=== PATIENT | male | born 1960 | race Caucasian/White ===

== ENCOUNTER 2019-12-23 15:28 | Inpatient (IN) | payer OTHER ==
[2019-12-23 17:28] VITALS: BMI 29.0
[2019-12-23] MEDS ORDERED: MAGNESIUM HYDROX 2400MG/30ML ORAL SUSPENSION 30 ML CUP PO PRN (23:33)
[2019-12-23] MEDS ORDERED: guaiFENesin 200 MG/10 ML 10 ML UNIT-DOSE CUPS PO PRN (23:33)
[2019-12-23] MEDS ORDERED: MAG HYDROX/AL HYDROX/SIMETH 30 ML UNIT-DOSE CUP PO PRN (23:33)
[2019-12-23] MEDS ORDERED: MAGNESIUM CITRATE 300 ML BOTTLE PO PRN (23:33)
[2019-12-23] MEDS ORDERED: LOPERAMIDE HCL 2 MG CAPSULE PO PRN (23:33)
[2019-12-23] MEDS ORDERED: P-EPHED 60MG/TRIPROLIDI 2.5MG TABLET PO PRN (23:33)
[2019-12-24] MEDS: MELATONIN 5 MG TABLETS PO SCH ×2 (01:24→21:02)
[2019-12-24] MEDS: BUPRENORPHINE/NALOXONE 2 MG/0.5 MG FILM PACKET SL SCH (09:50)
[2019-12-24] MEDS: ASPIRIN COATED 81 MG TABLET.EC PO SCH (09:50)
[2019-12-24] MEDS: PRENATAL VITAMINS W/ FOLIC ACID TABLET (FP) PO SCH (09:50)
[2019-12-24] MEDS: ATORVASTATIN CA 40 MG TABLET (FP) PO SCH (09:51)
[2019-12-24] MEDS: FERROUS SO4 325 MG TABLET (FP) PO SCH ×2 (09:51→21:02)
[2019-12-24] MEDS: NIFEdipine E.R 60 MG TABLET PO SCH (09:51)
[2019-12-24] MEDS ORDERED: RIVAROXABAN 2.5 MG TABLET PO SCH (10:00)
[2019-12-24] MEDS: LOSARTAN POTASSIUM 25 MG TABLET PO SCH (10:29)
[2019-12-24] MEDS: metoPROLOL SUCCINATE 25 MG TAB.SR.24H (FP) PO SCH (10:30)
[2019-12-24 11:54] LABS: HEMATOCRIT 38.3 % (35.4-49); HEMOGLOBIN 12.9 GM/dL (11.7-16.9); MCH 30.6 pg (25.7-33.7); MCHC 33.7 g/dl (32.0-35.9); MEAN PLT VOLUME 7.8 fl (7.5-11.1); PLATELET COUNT 233 K/MM3 (134-434); RBC 4.22 M/mm3 (4.00-5.60); RDW 13.5 % (11.9-15.9); WHITE BLOOD COUNT 7.2 K/mm3 (4.0-10.0)
[2019-12-24 12:03] LABS: URINE APPEARANCE CLEAR; URINE BILIRUBIN NEGATIVE (NEGATIVE); URINE COLOR YELLOW; URINE GLUCOSE (UA) NEGATIVE (NEGATIVE); URINE KETONE NEGATIVE (NEGATIVE); URINE LEUK ESTERASE NEGATIVE (NEGATIVE); URINE NITRITE NEGATIVE (NEGATIVE); URINE PROTEIN NEGATIVE (NEGATIVE); URINE UROBILINOGEN 0.2 mg/dL (0.2-1.0)
[2019-12-24 12:09] LABS: BILIRUBIN,TOTAL 0.6 mg/dL (0.2-1); BLOOD UREA NITROGEN 21.2 mg/dL (7-18); CALCIUM 8.5 mg/dL (8.5-10.1); POTASSIUM 4.2 mmol/L (3.5-5.1)
[2019-12-24 12:12] LABS: ALBUMIN 3.9 g/dl (3.4-5.0); CREATININE 1.4 mg/dL (0.55-1.3); TOT PROT 8.2 g/dl (6.4-8.2)
[2019-12-24 12:25] LABS: SICKLE CELL SCREEN NEGATIVE (NEGATIVE)
[2019-12-24] MEDS: RIVAROXABAN 2.5 MG PO SCH ×2 (14:38→21:02)
[2019-12-24] MEDS ORDERED: PT OWN MED DRAWER 7, Y5N ONE ×3 (16:05→21:03)
[2019-12-24] MEDS: THIAMINE HCL 100 MG TABLET (FP) PO SCH (21:02)
[2019-12-25] MEDS: metoPROLOL SUCCINATE 25 MG TAB.SR.24H (FP) PO SCH (10:10)
[2019-12-25] MEDS: ASPIRIN COATED 81 MG TABLET.EC PO SCH (10:10)
[2019-12-25] MEDS: LOSARTAN POTASSIUM 25 MG TABLET PO SCH (10:10)
[2019-12-25] MEDS: FERROUS SO4 325 MG TABLET (FP) PO SCH ×2 (10:10→21:45)
[2019-12-25] MEDS: NIFEdipine E.R 60 MG TABLET PO SCH (10:10)
[2019-12-25] MEDS: ATORVASTATIN CA 40 MG TABLET (FP) PO SCH (10:10)
[2019-12-25] MEDS: PRENATAL VITAMINS W/ FOLIC ACID TABLET (FP) PO SCH (10:10)
[2019-12-25] MEDS: BUPRENORPHINE/NALOXONE 2 MG/0.5 MG FILM PACKET SL SCH (10:10)
[2019-12-25] MEDS ORDERED: PT OWN MED DRAWER 7, Y5N ONE ×2 (10:12→19:02)
[2019-12-25] MEDS: RIVAROXABAN 2.5 MG PO SCH ×2 (10:12→21:45)
[2019-12-25] MEDS: THIAMINE HCL 100 MG TABLET (FP) PO SCH (21:45)
[2019-12-25] MEDS: MELATONIN 5 MG TABLETS PO SCH (21:45)
[2019-12-26] MEDS: ACETAMINOPHEN 325 MG TABLET (FP) PO PRN ×2 (10:08→21:03)
[2019-12-26] MEDS: ASPIRIN COATED 81 MG TABLET.EC PO SCH (10:08)
[2019-12-26] MEDS: NIFEdipine E.R 60 MG TABLET PO SCH (10:08)
[2019-12-26] MEDS: FERROUS SO4 325 MG TABLET (FP) PO SCH ×2 (10:08→21:02)
[2019-12-26] MEDS: BUPRENORPHINE/NALOXONE 2 MG/0.5 MG FILM PACKET SL SCH (10:08)
[2019-12-26] MEDS: LOSARTAN POTASSIUM 25 MG TABLET PO SCH (10:08)
[2019-12-26] MEDS: ATORVASTATIN CA 40 MG TABLET (FP) PO SCH (10:08)
[2019-12-26] MEDS: RIVAROXABAN 2.5 MG PO SCH ×2 (10:09→21:02)
[2019-12-26] MEDS ORDERED: PT OWN MED DRAWER 7, Y5N ONE ×2 (10:09→20:47)
[2019-12-26] MEDS: PRENATAL VITAMINS W/ FOLIC ACID TABLET (FP) PO SCH (10:10)
[2019-12-26] MEDS: metoPROLOL SUCCINATE 25 MG TAB.SR.24H (FP) PO SCH (10:12)
[2019-12-26] MEDS: THIAMINE HCL 100 MG TABLET (FP) PO SCH (21:02)
[2019-12-26] MEDS: MELATONIN 5 MG TABLETS PO SCH (21:02)
[2019-12-27] MEDS: ACETAMINOPHEN 325 MG TABLET (FP) PO PRN (06:40)
[2019-12-27] MEDS ORDERED: cloNIDine HCL 0.1 MG TABLET PO ONE (07:29)
[2019-12-27] MEDS ORDERED: PT OWN MED DRAWER 7, Y5N ONE ×2 (08:33→21:27)
[2019-12-27] MEDS: BUPRENORPHINE/NALOXONE 2 MG/0.5 MG FILM PACKET SL SCH (10:39)
[2019-12-27] MEDS: ATORVASTATIN CA 40 MG TABLET (FP) PO SCH (10:39)
[2019-12-27] MEDS: LOSARTAN POTASSIUM 25 MG TABLET PO SCH (10:39)
[2019-12-27] MEDS: metoPROLOL SUCCINATE 25 MG TAB.SR.24H (FP) PO SCH (10:39)
[2019-12-27] MEDS: PRENATAL VITAMINS W/ FOLIC ACID TABLET (FP) PO SCH (10:39)
[2019-12-27] MEDS: NIFEdipine E.R 60 MG TABLET PO SCH (10:39)
[2019-12-27] MEDS: ASPIRIN COATED 81 MG TABLET.EC PO SCH (10:39)
[2019-12-27] MEDS: FERROUS SO4 325 MG TABLET (FP) PO SCH ×2 (10:39→21:26)
[2019-12-27] MEDS: RIVAROXABAN 2.5 MG PO SCH ×2 (10:39→21:26)
[2019-12-27] MEDS: MELATONIN 5 MG TABLETS PO SCH (21:26)
[2019-12-27] MEDS: THIAMINE HCL 100 MG TABLET (FP) PO SCH (21:26)
[2019-12-28] MEDS ORDERED: PT OWN MED DRAWER 7, Y5N ONE ×3 (08:29→18:23)
[2019-12-28] MEDS: metoPROLOL SUCCINATE 25 MG TAB.SR.24H (FP) PO SCH (09:22)
[2019-12-28] MEDS: LOSARTAN POTASSIUM 25 MG TABLET PO SCH (09:22)
[2019-12-28] MEDS: FERROUS SO4 325 MG TABLET (FP) PO SCH ×2 (09:22→21:02)
[2019-12-28] MEDS: PRENATAL VITAMINS W/ FOLIC ACID TABLET (FP) PO SCH (09:22)
[2019-12-28] MEDS: NIFEdipine E.R 60 MG TABLET PO SCH (09:22)
[2019-12-28] MEDS: ATORVASTATIN CA 40 MG TABLET (FP) PO SCH (09:22)
[2019-12-28] MEDS: ASPIRIN COATED 81 MG TABLET.EC PO SCH (09:22)
[2019-12-28] MEDS: BUPRENORPHINE/NALOXONE 2 MG/0.5 MG FILM PACKET SL SCH (09:22)
[2019-12-28] MEDS: RIVAROXABAN 2.5 MG PO SCH ×2 (09:22→21:03)
[2019-12-28] MEDS: MELATONIN 5 MG TABLETS PO SCH (21:02)
[2019-12-28] MEDS: THIAMINE HCL 100 MG TABLET (FP) PO SCH (21:02)
[2019-12-29] MEDS: metoPROLOL SUCCINATE 25 MG TAB.SR.24H (FP) PO SCH (10:01)
[2019-12-29] MEDS: FERROUS SO4 325 MG TABLET (FP) PO SCH ×2 (10:01→21:33)
[2019-12-29] MEDS: NIFEdipine E.R 60 MG TABLET PO SCH (10:01)
[2019-12-29] MEDS: PRENATAL VITAMINS W/ FOLIC ACID TABLET (FP) PO SCH (10:01)
[2019-12-29] MEDS: ASPIRIN COATED 81 MG TABLET.EC PO SCH (10:01)
[2019-12-29] MEDS: LOSARTAN POTASSIUM 25 MG TABLET PO SCH (10:01)
[2019-12-29] MEDS: ATORVASTATIN CA 40 MG TABLET (FP) PO SCH (10:01)
[2019-12-29] MEDS: RIVAROXABAN 2.5 MG PO SCH ×2 (10:03→21:33)
[2019-12-29] MEDS: ACETAMINOPHEN 325 MG TABLET (FP) PO PRN ×2 (10:05→21:34)
[2019-12-29] MEDS: BUPRENORPHINE/NALOXONE 2 MG/0.5 MG FILM PACKET SL SCH (10:15)
[2019-12-29] MEDS: CYCLOBENZAPRINE HCL 10 MG TABLET (FP) PO PRN (12:12)
[2019-12-29] MEDS ORDERED: PT OWN MED DRAWER 7, Y5N ONE (18:16)
[2019-12-29] MEDS: MELATONIN 5 MG TABLETS PO SCH (21:33)
[2019-12-29] MEDS: THIAMINE HCL 100 MG TABLET (FP) PO SCH (21:33)
[2019-12-30] MEDS ORDERED: PT OWN MED DRAWER 7, Y5N ONE ×3 (08:21→20:13)
[2019-12-30] MEDS: LOSARTAN POTASSIUM 25 MG TABLET PO SCH (10:08)
[2019-12-30] MEDS: PRENATAL VITAMINS W/ FOLIC ACID TABLET (FP) PO SCH (10:09)
[2019-12-30] MEDS: ATORVASTATIN CA 40 MG TABLET (FP) PO SCH (10:09)
[2019-12-30] MEDS: ASPIRIN COATED 81 MG TABLET.EC PO SCH (10:09)
[2019-12-30] MEDS: NIFEdipine E.R 60 MG TABLET PO SCH (10:09)
[2019-12-30] MEDS: FERROUS SO4 325 MG TABLET (FP) PO SCH ×2 (10:10→21:04)
[2019-12-30] MEDS: metoPROLOL SUCCINATE 25 MG TAB.SR.24H (FP) PO SCH (10:10)
[2019-12-30] MEDS: BUPRENORPHINE/NALOXONE 2 MG/0.5 MG FILM PACKET SL SCH (10:11)
[2019-12-30] MEDS: RIVAROXABAN 2.5 MG PO SCH ×2 (10:11→21:06)
[2019-12-30] MEDS: CYCLOBENZAPRINE HCL 10 MG TABLET (FP) PO PRN ×2 (10:12→21:05)
[2019-12-30] MEDS: MELATONIN 5 MG TABLETS PO SCH (21:04)
[2019-12-30] MEDS: THIAMINE HCL 100 MG TABLET (FP) PO SCH (21:06)
[2019-12-31] MEDS: ACETAMINOPHEN 325 MG TABLET (FP) PO PRN ×2 (05:57→21:53)
[2019-12-31] MEDS: CYCLOBENZAPRINE HCL 10 MG TABLET (FP) PO PRN ×2 (05:57→21:52)
[2019-12-31] MEDS ORDERED: PT OWN MED DRAWER 7, Y5N ONE ×3 (08:28→20:09)
[2019-12-31] MEDS: PRENATAL VITAMINS W/ FOLIC ACID TABLET (FP) PO SCH (10:19)
[2019-12-31] MEDS: NIFEdipine E.R 60 MG TABLET PO SCH (10:20)
[2019-12-31] MEDS: FERROUS SO4 325 MG TABLET (FP) PO SCH ×2 (10:20→21:51)
[2019-12-31] MEDS: LOSARTAN POTASSIUM 25 MG TABLET PO SCH (10:20)
[2019-12-31] MEDS: BUPRENORPHINE/NALOXONE 2 MG/0.5 MG FILM PACKET SL SCH (10:20)
[2019-12-31] MEDS: ASPIRIN COATED 81 MG TABLET.EC PO SCH (10:21)
[2019-12-31] MEDS: metoPROLOL SUCCINATE 25 MG TAB.SR.24H (FP) PO SCH (10:21)
[2019-12-31] MEDS: RIVAROXABAN 2.5 MG PO SCH ×2 (10:21→21:54)
[2019-12-31] MEDS: ATORVASTATIN CA 40 MG TABLET (FP) PO SCH (10:21)
[2019-12-31] MEDS ORDERED: FLU VACCINE (FLULAVAL) PF 60 MCG/0.5 ML SYRINGE 2020-2021 IM ONE (12:00)
[2019-12-31] MEDS: THIAMINE HCL 100 MG TABLET (FP) PO SCH (21:51)
[2019-12-31] MEDS: MELATONIN 5 MG TABLETS PO SCH (21:51)
[2020-01-01] MEDS ORDERED: ASPIRIN 81 MG CHEWABLE TABLETS PO ONE (09:00)
[2020-01-01] MEDS: ASPIRIN COATED 81 MG TABLET.EC PO SCH (10:30)
[2020-01-01] MEDS ORDERED: PNEUMOCOCCAL 23 VACCINE 0.5 ML VIAL IM ONE (12:00)
[2020-01-01] MEDS: LOSARTAN POTASSIUM 25 MG TABLET PO SCH (12:39)
[2020-01-01] MEDS: NIFEdipine E.R 60 MG TABLET PO SCH (12:40)
[2020-01-01] MEDS: RIVAROXABAN 2.5 MG PO SCH ×2 (13:23→22:11)
[2020-01-01] MEDS ORDERED: PT OWN MED DRAWER 7, Y5N ONE ×2 (13:23→15:08)
[2020-01-01] MEDS: metoPROLOL SUCCINATE 25 MG TAB.SR.24H (FP) PO SCH (13:24)
[2020-01-01] MEDS: FERROUS SO4 325 MG TABLET (FP) PO SCH ×2 (13:24→22:07)
[2020-01-01] MEDS: BUPRENORPHINE/NALOXONE 2 MG/0.5 MG FILM PACKET SL SCH (13:24)
[2020-01-01] MEDS: ATORVASTATIN CA 40 MG TABLET (FP) PO SCH (13:25)
[2020-01-01] MEDS: PRENATAL VITAMINS W/ FOLIC ACID TABLET (FP) PO SCH (13:25)
[2020-01-01] MEDS: ACETAMINOPHEN 325 MG TABLET (FP) PO PRN (13:27)
[2020-01-01] MEDS: valACYclovir HCL 500 MG TABLET (FP) PO SCH ×2 (15:21→22:06)
[2020-01-01] MEDS: PREGABALIN 100 MG CAPSULE PO SCH ×2 (15:22→22:06)
[2020-01-01] MEDS: MELATONIN 5 MG TABLETS PO SCH (22:06)
[2020-01-01] MEDS: THIAMINE HCL 100 MG TABLET (FP) PO SCH (22:08)
[2020-01-02] MEDS: ACETAMINOPHEN 325 MG TABLET (FP) PO PRN ×2 (02:49→11:04)
[2020-01-02] MEDS: valACYclovir HCL 500 MG TABLET (FP) PO SCH ×3 (06:40→21:57)
[2020-01-02] MEDS: PREGABALIN 100 MG CAPSULE PO SCH ×3 (06:40→21:57)
[2020-01-02] MEDS ORDERED: PT OWN MED DRAWER 7, Y5N ONE ×2 (08:51→08:52)
[2020-01-02] MEDS: RIVAROXABAN 2.5 MG PO SCH ×2 (10:58→21:58)
[2020-01-02] MEDS: ATORVASTATIN CA 40 MG TABLET (FP) PO SCH (10:58)
[2020-01-02] MEDS: PRENATAL VITAMINS W/ FOLIC ACID TABLET (FP) PO SCH (10:58)
[2020-01-02] MEDS: FERROUS SO4 325 MG TABLET (FP) PO SCH ×2 (10:58→21:57)
[2020-01-02] MEDS: LOSARTAN POTASSIUM 25 MG TABLET PO SCH (10:59)
[2020-01-02] MEDS: ASPIRIN COATED 81 MG TABLET.EC PO SCH (10:59)
[2020-01-02] MEDS: NIFEdipine E.R 60 MG TABLET PO SCH (10:59)
[2020-01-02] MEDS: metoPROLOL SUCCINATE 25 MG TAB.SR.24H (FP) PO SCH (11:00)
[2020-01-02] MEDS: BUPRENORPHINE/NALOXONE 2 MG/0.5 MG FILM PACKET SL SCH (11:00)
[2020-01-02] MEDS: MELATONIN 5 MG TABLETS PO SCH (21:58)
[2020-01-02] MEDS: THIAMINE HCL 100 MG TABLET (FP) PO SCH (21:58)
[2020-01-03] MEDS: PREGABALIN 100 MG CAPSULE PO SCH ×3 (07:20→21:47)
[2020-01-03] MEDS: valACYclovir HCL 500 MG TABLET (FP) PO SCH ×3 (07:20→21:48)
[2020-01-03] MEDS: ACETAMINOPHEN 325 MG TABLET (FP) PO PRN ×2 (07:23→14:36)
[2020-01-03] MEDS: hydrOXYzine PAMOATE 25 MG CAPSULE (FP) PO PRN (07:23)
[2020-01-03] MEDS: PRENATAL VITAMINS W/ FOLIC ACID TABLET (FP) PO SCH (10:49)
[2020-01-03] MEDS: ASPIRIN COATED 81 MG TABLET.EC PO SCH (10:49)
[2020-01-03] MEDS: metoPROLOL SUCCINATE 25 MG TAB.SR.24H (FP) PO SCH (10:49)
[2020-01-03] MEDS: NIFEdipine E.R 60 MG TABLET PO SCH (10:49)
[2020-01-03] MEDS: FERROUS SO4 325 MG TABLET (FP) PO SCH ×2 (10:49→21:47)
[2020-01-03] MEDS: ATORVASTATIN CA 40 MG TABLET (FP) PO SCH (10:49)
[2020-01-03] MEDS: LOSARTAN POTASSIUM 25 MG TABLET PO SCH (10:49)
[2020-01-03] MEDS: BUPRENORPHINE/NALOXONE 2 MG/0.5 MG FILM PACKET SL SCH (10:49)
[2020-01-03] MEDS: RIVAROXABAN 2.5 MG PO SCH ×2 (10:52→21:47)
[2020-01-03] MEDS ORDERED: PT OWN MED DRAWER 7, Y5N ONE ×3 (10:53→18:34)
[2020-01-03] MEDS: THIAMINE HCL 100 MG TABLET (FP) PO SCH (21:47)
[2020-01-03] MEDS: MELATONIN 5 MG TABLETS PO SCH (21:47)
[2020-01-04] MEDS: ACETAMINOPHEN 325 MG TABLET (FP) PO PRN (02:17)
[2020-01-04] MEDS: hydrOXYzine PAMOATE 25 MG CAPSULE (FP) PO PRN ×2 (02:17→10:19)
[2020-01-04] MEDS: valACYclovir HCL 500 MG TABLET (FP) PO SCH ×3 (06:45→21:56)
[2020-01-04] MEDS: PREGABALIN 100 MG CAPSULE PO SCH ×3 (06:45→21:56)
[2020-01-04] MEDS: FERROUS SO4 325 MG TABLET (FP) PO SCH ×2 (10:19→21:55)
[2020-01-04] MEDS: NIFEdipine E.R 60 MG TABLET PO SCH (10:19)
[2020-01-04] MEDS: BUPRENORPHINE/NALOXONE 2 MG/0.5 MG FILM PACKET SL SCH (10:19)
[2020-01-04] MEDS: ATORVASTATIN CA 40 MG TABLET (FP) PO SCH (10:19)
[2020-01-04] MEDS: ASPIRIN COATED 81 MG TABLET.EC PO SCH (10:19)
[2020-01-04] MEDS: PRENATAL VITAMINS W/ FOLIC ACID TABLET (FP) PO SCH (10:19)
[2020-01-04] MEDS: metoPROLOL SUCCINATE 25 MG TAB.SR.24H (FP) PO SCH (10:20)
[2020-01-04] MEDS: RIVAROXABAN 2.5 MG PO SCH ×2 (10:20→21:57)
[2020-01-04] MEDS: LOSARTAN POTASSIUM 25 MG TABLET PO SCH (10:20)
[2020-01-04] MEDS ORDERED: PT OWN MED DRAWER 7, Y5N ONE (20:19)
[2020-01-04] MEDS: THIAMINE HCL 100 MG TABLET (FP) PO SCH (21:57)
[2020-01-04] MEDS: MELATONIN 5 MG TABLETS PO SCH (21:57)
[2020-01-05] MEDS: valACYclovir HCL 500 MG TABLET (FP) PO SCH ×3 (06:16→21:56)
[2020-01-05] MEDS: PREGABALIN 100 MG CAPSULE PO SCH ×3 (06:16→21:56)
[2020-01-05] MEDS: FERROUS SO4 325 MG TABLET (FP) PO SCH ×2 (10:30→21:55)
[2020-01-05] MEDS: hydrOXYzine PAMOATE 25 MG CAPSULE (FP) PO PRN ×2 (10:30→15:03)
[2020-01-05] MEDS: ASPIRIN COATED 81 MG TABLET.EC PO SCH (10:30)
[2020-01-05] MEDS: PRENATAL VITAMINS W/ FOLIC ACID TABLET (FP) PO SCH (10:30)
[2020-01-05] MEDS: NIFEdipine E.R 60 MG TABLET PO SCH (10:30)
[2020-01-05] MEDS: ATORVASTATIN CA 40 MG TABLET (FP) PO SCH (10:30)
[2020-01-05] MEDS: metoPROLOL SUCCINATE 25 MG TAB.SR.24H (FP) PO SCH (10:31)
[2020-01-05] MEDS: BUPRENORPHINE/NALOXONE 2 MG/0.5 MG FILM PACKET SL SCH (10:31)
[2020-01-05] MEDS: LOSARTAN POTASSIUM 25 MG TABLET PO SCH (10:31)
[2020-01-05] MEDS: RIVAROXABAN 2.5 MG PO SCH ×2 (10:31→21:57)
[2020-01-05] MEDS ORDERED: PT OWN MED DRAWER 7, Y5N ONE (20:35)
[2020-01-05] MEDS: MELATONIN 5 MG TABLETS PO SCH (21:55)
[2020-01-05] MEDS: THIAMINE HCL 100 MG TABLET (FP) PO SCH (21:57)
[2020-01-06] MEDS: valACYclovir HCL 500 MG TABLET (FP) PO SCH ×3 (07:07→21:56)
[2020-01-06] MEDS: PREGABALIN 100 MG CAPSULE PO SCH ×3 (07:08→21:56)
[2020-01-06] MEDS: LOSARTAN POTASSIUM 25 MG TABLET PO SCH (10:43)
[2020-01-06] MEDS: NIFEdipine E.R 60 MG TABLET PO SCH (10:43)
[2020-01-06] MEDS: ATORVASTATIN CA 40 MG TABLET (FP) PO SCH (10:43)
[2020-01-06] MEDS: metoPROLOL SUCCINATE 25 MG TAB.SR.24H (FP) PO SCH (10:43)
[2020-01-06] MEDS: PRENATAL VITAMINS W/ FOLIC ACID TABLET (FP) PO SCH (10:43)
[2020-01-06] MEDS: FERROUS SO4 325 MG TABLET (FP) PO SCH ×2 (10:43→21:56)
[2020-01-06] MEDS: hydrOXYzine PAMOATE 25 MG CAPSULE (FP) PO PRN (10:43)
[2020-01-06] MEDS: ASPIRIN COATED 81 MG TABLET.EC PO SCH (10:44)
[2020-01-06] MEDS: RIVAROXABAN 2.5 MG PO SCH ×2 (10:44→22:01)
[2020-01-06] MEDS: ACETAMINOPHEN 325 MG TABLET (FP) PO PRN (10:44)
[2020-01-06] MEDS: BUPRENORPHINE/NALOXONE 2 MG/0.5 MG FILM PACKET SL SCH (10:44)
[2020-01-06] MEDS ORDERED: PT OWN MED DRAWER 7, Y5N ONE (19:20)
[2020-01-06] MEDS: MELATONIN 5 MG TABLETS PO SCH (21:55)
[2020-01-06] MEDS: THIAMINE HCL 100 MG TABLET (FP) PO SCH (21:56)
[2020-01-07] MEDS: valACYclovir HCL 500 MG TABLET (FP) PO SCH ×3 (06:23→21:39)
[2020-01-07] MEDS: PREGABALIN 100 MG CAPSULE PO SCH ×3 (06:23→21:39)
[2020-01-07] MEDS ORDERED: PT OWN MED DRAWER 7, Y5N ONE ×2 (08:53→18:39)
[2020-01-07] MEDS: RIVAROXABAN 2.5 MG PO SCH ×2 (10:29→21:39)
[2020-01-07] MEDS: ATORVASTATIN CA 40 MG TABLET (FP) PO SCH (10:31)
[2020-01-07] MEDS: FERROUS SO4 325 MG TABLET (FP) PO SCH ×2 (10:31→21:39)
[2020-01-07] MEDS: metoPROLOL SUCCINATE 25 MG TAB.SR.24H (FP) PO SCH (10:31)
[2020-01-07] MEDS: BUPRENORPHINE/NALOXONE 2 MG/0.5 MG FILM PACKET SL SCH (10:31)
[2020-01-07] MEDS: ASPIRIN COATED 81 MG TABLET.EC PO SCH (10:31)
[2020-01-07] MEDS: LOSARTAN POTASSIUM 25 MG TABLET PO SCH (10:31)
[2020-01-07] MEDS: NIFEdipine E.R 60 MG TABLET PO SCH (10:32)
[2020-01-07] MEDS: PRENATAL VITAMINS W/ FOLIC ACID TABLET (FP) PO SCH (10:32)
[2020-01-07] MEDS: ACETAMINOPHEN 325 MG TABLET (FP) PO PRN (10:52)
[2020-01-07] MEDS: MELATONIN 5 MG TABLETS PO SCH (21:38)
[2020-01-07] MEDS: THIAMINE HCL 100 MG TABLET (FP) PO SCH (21:38)
[2020-01-08] MEDS: PREGABALIN 100 MG CAPSULE PO SCH ×3 (06:20→21:41)
[2020-01-08] MEDS ORDERED: PT OWN MED DRAWER 7, Y5N ONE ×2 (09:21→18:44)
[2020-01-08] MEDS: PRENATAL VITAMINS W/ FOLIC ACID TABLET (FP) PO SCH (11:13)
[2020-01-08] MEDS: ATORVASTATIN CA 40 MG TABLET (FP) PO SCH (11:13)
[2020-01-08] MEDS: NIFEdipine E.R 60 MG TABLET PO SCH (11:13)
[2020-01-08] MEDS: metoPROLOL SUCCINATE 25 MG TAB.SR.24H (FP) PO SCH (11:13)
[2020-01-08] MEDS: ASPIRIN COATED 81 MG TABLET.EC PO SCH (11:13)
[2020-01-08] MEDS: FERROUS SO4 325 MG TABLET (FP) PO SCH ×2 (11:13→21:39)
[2020-01-08] MEDS: LOSARTAN POTASSIUM 25 MG TABLET PO SCH (11:14)
[2020-01-08] MEDS: BUPRENORPHINE/NALOXONE 2 MG/0.5 MG FILM PACKET SL SCH (11:14)
[2020-01-08] MEDS: RIVAROXABAN 2.5 MG PO SCH ×2 (11:16→21:40)
[2020-01-08] MEDS: hydrOXYzine PAMOATE 25 MG CAPSULE (FP) PO PRN (14:22)
[2020-01-08] MEDS: ACETAMINOPHEN 325 MG TABLET (FP) PO PRN (14:23)
[2020-01-08] MEDS: THIAMINE HCL 100 MG TABLET (FP) PO SCH (21:39)
[2020-01-08] MEDS: MELATONIN 5 MG TABLETS PO SCH (21:40)
[2020-01-09] MEDS: PREGABALIN 100 MG CAPSULE PO SCH ×3 (06:16→21:47)
[2020-01-09] MEDS ORDERED: PT OWN MED DRAWER 7, Y5N ONE ×2 (09:40→13:46)
[2020-01-09] MEDS: FERROUS SO4 325 MG TABLET (FP) PO SCH ×2 (10:52→21:47)
[2020-01-09] MEDS: ATORVASTATIN CA 40 MG TABLET (FP) PO SCH (10:52)
[2020-01-09] MEDS: metoPROLOL SUCCINATE 25 MG TAB.SR.24H (FP) PO SCH (10:52)
[2020-01-09] MEDS: BUPRENORPHINE/NALOXONE 2 MG/0.5 MG FILM PACKET SL SCH (10:52)
[2020-01-09] MEDS: ASPIRIN COATED 81 MG TABLET.EC PO SCH (10:52)
[2020-01-09] MEDS: PRENATAL VITAMINS W/ FOLIC ACID TABLET (FP) PO SCH (10:52)
[2020-01-09] MEDS: NIFEdipine E.R 60 MG TABLET PO SCH (10:52)
[2020-01-09] MEDS: LOSARTAN POTASSIUM 25 MG TABLET PO SCH (10:52)
[2020-01-09] MEDS: RIVAROXABAN 2.5 MG PO SCH ×2 (10:53→21:47)
[2020-01-09] MEDS ORDERED: predniSONE 5 MG TABLET (UD) PO ONE (10:59)
[2020-01-09] MEDS: predniSONE 5 MG TABLET (UD) PO SCH (13:58)
[2020-01-09] MEDS: MELATONIN 5 MG TABLETS PO SCH (21:47)
[2020-01-09] MEDS: THIAMINE HCL 100 MG TABLET (FP) PO SCH (21:47)
[2020-01-10] MEDS: PREGABALIN 100 MG CAPSULE PO SCH ×3 (06:27→21:38)
[2020-01-10] MEDS: LOSARTAN POTASSIUM 25 MG TABLET PO SCH (10:39)
[2020-01-10] MEDS: FERROUS SO4 325 MG TABLET (FP) PO SCH ×2 (10:39→21:38)
[2020-01-10] MEDS: NIFEdipine E.R 60 MG TABLET PO SCH (10:39)
[2020-01-10] MEDS: BUPRENORPHINE/NALOXONE 2 MG/0.5 MG FILM PACKET SL SCH (10:39)
[2020-01-10] MEDS: predniSONE 5 MG TABLET (UD) PO SCH (10:39)
[2020-01-10] MEDS: hydrOXYzine PAMOATE 25 MG CAPSULE (FP) PO PRN (10:39)
[2020-01-10] MEDS: metoPROLOL SUCCINATE 25 MG TAB.SR.24H (FP) PO SCH (10:39)
[2020-01-10] MEDS: ASPIRIN COATED 81 MG TABLET.EC PO SCH (10:39)
[2020-01-10] MEDS: PRENATAL VITAMINS W/ FOLIC ACID TABLET (FP) PO SCH (10:39)
[2020-01-10] MEDS: RIVAROXABAN 2.5 MG PO SCH ×2 (10:40→21:38)
[2020-01-10] MEDS: ATORVASTATIN CA 40 MG TABLET (FP) PO SCH (10:40)
[2020-01-10] MEDS ORDERED: PT OWN MED DRAWER 7, Y5N ONE (18:24)
[2020-01-10] MEDS: THIAMINE HCL 100 MG TABLET (FP) PO SCH (21:38)
[2020-01-10] MEDS: MELATONIN 5 MG TABLETS PO SCH (21:38)
[2020-01-11] MEDS: PREGABALIN 100 MG CAPSULE PO SCH ×3 (07:19→21:33)
[2020-01-11] MEDS: hydrOXYzine PAMOATE 25 MG CAPSULE (FP) PO PRN (07:19)
[2020-01-11] MEDS: LOSARTAN POTASSIUM 25 MG TABLET PO SCH (10:02)
[2020-01-11] MEDS: metoPROLOL SUCCINATE 25 MG TAB.SR.24H (FP) PO SCH (10:02)
[2020-01-11] MEDS: PRENATAL VITAMINS W/ FOLIC ACID TABLET (FP) PO SCH (10:02)
[2020-01-11] MEDS: ATORVASTATIN CA 40 MG TABLET (FP) PO SCH (10:02)
[2020-01-11] MEDS: BUPRENORPHINE/NALOXONE 2 MG/0.5 MG FILM PACKET SL SCH (10:02)
[2020-01-11] MEDS: predniSONE 5 MG TABLET (UD) PO SCH (10:02)
[2020-01-11] MEDS: FERROUS SO4 325 MG TABLET (FP) PO SCH ×2 (10:02→21:32)
[2020-01-11] MEDS: NIFEdipine E.R 60 MG TABLET PO SCH (10:02)
[2020-01-11] MEDS: ASPIRIN COATED 81 MG TABLET.EC PO SCH (10:02)
[2020-01-11] MEDS ORDERED: PT OWN MED DRAWER 7, Y5N ONE ×2 (10:03→18:56)
[2020-01-11] MEDS: RIVAROXABAN 2.5 MG PO SCH ×2 (10:03→21:32)
[2020-01-11] MEDS: THIAMINE HCL 100 MG TABLET (FP) PO SCH (21:32)
[2020-01-11] MEDS: MELATONIN 5 MG TABLETS PO SCH (21:32)
[2020-01-12] MEDS: PREGABALIN 100 MG CAPSULE PO SCH ×3 (06:38→21:34)
[2020-01-12] MEDS ORDERED: PT OWN MED DRAWER 7, Y5N ONE ×2 (08:39→18:56)
[2020-01-12] MEDS: ASPIRIN COATED 81 MG TABLET.EC PO SCH (10:02)
[2020-01-12] MEDS: PRENATAL VITAMINS W/ FOLIC ACID TABLET (FP) PO SCH (10:02)
[2020-01-12] MEDS: RIVAROXABAN 2.5 MG PO SCH ×2 (10:02→21:34)
[2020-01-12] MEDS: ATORVASTATIN CA 40 MG TABLET (FP) PO SCH (10:02)
[2020-01-12] MEDS: metoPROLOL SUCCINATE 25 MG TAB.SR.24H (FP) PO SCH (10:02)
[2020-01-12] MEDS: BUPRENORPHINE/NALOXONE 2 MG/0.5 MG FILM PACKET SL SCH (10:02)
[2020-01-12] MEDS: predniSONE 5 MG TABLET (UD) PO SCH (10:02)
[2020-01-12] MEDS: NIFEdipine E.R 60 MG TABLET PO SCH (10:02)
[2020-01-12] MEDS: LOSARTAN POTASSIUM 25 MG TABLET PO SCH (10:02)
[2020-01-12] MEDS: FERROUS SO4 325 MG TABLET (FP) PO SCH ×2 (10:02→21:33)
[2020-01-12] MEDS: THIAMINE HCL 100 MG TABLET (FP) PO SCH (21:33)
[2020-01-12] MEDS: MELATONIN 5 MG TABLETS PO SCH (21:33)
[2020-01-13] MEDS: PREGABALIN 100 MG CAPSULE PO SCH ×3 (07:08→21:58)
[2020-01-13] MEDS ORDERED: ATORVASTATIN CA 20 MG TABLET (FP) ONE (09:01)
[2020-01-13] MEDS: metoPROLOL SUCCINATE 25 MG TAB.SR.24H (FP) PO SCH (10:39)
[2020-01-13] MEDS: ASPIRIN COATED 81 MG TABLET.EC PO SCH (10:39)
[2020-01-13] MEDS: PRENATAL VITAMINS W/ FOLIC ACID TABLET (FP) PO SCH (10:39)
[2020-01-13] MEDS: BUPRENORPHINE/NALOXONE 2 MG/0.5 MG FILM PACKET SL SCH (10:40)
[2020-01-13] MEDS: NIFEdipine E.R 60 MG TABLET PO SCH (10:40)
[2020-01-13] MEDS: FERROUS SO4 325 MG TABLET (FP) PO SCH ×2 (10:40→21:57)
[2020-01-13] MEDS: ATORVASTATIN CA 40 MG TABLET (FP) PO SCH (10:40)
[2020-01-13] MEDS: predniSONE 5 MG TABLET (UD) PO SCH (10:40)
[2020-01-13] MEDS: LOSARTAN POTASSIUM 25 MG TABLET PO SCH (10:40)
[2020-01-13] MEDS: RIVAROXABAN 2.5 MG PO SCH ×2 (10:42→21:58)
[2020-01-13] MEDS ORDERED: PT OWN MED DRAWER 7, Y5N ONE ×2 (10:43→19:57)
[2020-01-13] MEDS: THIAMINE HCL 100 MG TABLET (FP) PO SCH (21:58)
[2020-01-13] MEDS: MELATONIN 5 MG TABLETS PO SCH (21:58)
[2020-01-14] MEDS: PREGABALIN 100 MG CAPSULE PO SCH ×2 (07:50→21:29)
[2020-01-14] MEDS: PRENATAL VITAMINS W/ FOLIC ACID TABLET (FP) PO SCH (10:39)
[2020-01-14] MEDS: metoPROLOL SUCCINATE 25 MG TAB.SR.24H (FP) PO SCH (10:39)
[2020-01-14] MEDS: NIFEdipine E.R 60 MG TABLET PO SCH (10:39)
[2020-01-14] MEDS: ASPIRIN COATED 81 MG TABLET.EC PO SCH (10:39)
[2020-01-14] MEDS: LOSARTAN POTASSIUM 25 MG TABLET PO SCH (10:39)
[2020-01-14] MEDS: BUPRENORPHINE/NALOXONE 2 MG/0.5 MG FILM PACKET SL SCH (10:40)
[2020-01-14] MEDS: FERROUS SO4 325 MG TABLET (FP) PO SCH ×2 (10:40→21:29)
[2020-01-14] MEDS: ATORVASTATIN CA 40 MG TABLET (FP) PO SCH (10:40)
[2020-01-14] MEDS: predniSONE 1 MG TABLET (FP) PO SCH (10:40)
[2020-01-14] MEDS: RIVAROXABAN 2.5 MG PO SCH ×2 (10:41→21:49)
[2020-01-14] MEDS ORDERED: PT OWN MED DRAWER 7, Y5N ONE ×2 (10:42→20:32)
[2020-01-14] MEDS: MELATONIN 5 MG TABLETS PO SCH (21:29)
[2020-01-14] MEDS: THIAMINE HCL 100 MG TABLET (FP) PO SCH (21:29)
[2020-01-15] MEDS ORDERED: PT OWN MED DRAWER 7, Y5N ONE ×3 (08:53→18:50)
[2020-01-15] MEDS: PRENATAL VITAMINS W/ FOLIC ACID TABLET (FP) PO SCH (09:48)
[2020-01-15] MEDS: metoPROLOL SUCCINATE 25 MG TAB.SR.24H (FP) PO SCH (09:48)
[2020-01-15] MEDS: LOSARTAN POTASSIUM 25 MG TABLET PO SCH (09:48)
[2020-01-15] MEDS: FERROUS SO4 325 MG TABLET (FP) PO SCH ×2 (09:48→21:23)
[2020-01-15] MEDS: PREGABALIN 100 MG CAPSULE PO SCH ×2 (09:48→21:24)
[2020-01-15] MEDS: NIFEdipine E.R 60 MG TABLET PO SCH (09:48)
[2020-01-15] MEDS: predniSONE 1 MG TABLET (FP) PO SCH (09:48)
[2020-01-15] MEDS: ASPIRIN COATED 81 MG TABLET.EC PO SCH (09:49)
[2020-01-15] MEDS: BUPRENORPHINE/NALOXONE 2 MG/0.5 MG FILM PACKET SL SCH (09:49)
[2020-01-15] MEDS: ATORVASTATIN CA 40 MG TABLET (FP) PO SCH (09:49)
[2020-01-15] MEDS: RIVAROXABAN 2.5 MG PO SCH ×2 (09:50→21:24)
[2020-01-15] MEDS: ACETAMINOPHEN 325 MG TABLET (FP) PO PRN (13:40)
[2020-01-15] MEDS: LIDOCAINE 5% TOPICAL PATCH TP SCH (15:48)
[2020-01-15] MEDS: MELATONIN 5 MG TABLETS PO SCH (21:23)
[2020-01-15] MEDS: THIAMINE HCL 100 MG TABLET (FP) PO SCH (21:23)
[2020-01-15] MEDS: LIDOCAINE PATCH REMOVAL MC SCH (21:24)
[2020-01-16] MEDS: PRENATAL VITAMINS W/ FOLIC ACID TABLET (FP) PO SCH (09:40)
[2020-01-16] MEDS: PREGABALIN 100 MG CAPSULE PO SCH ×2 (09:40→21:23)
[2020-01-16] MEDS: NIFEdipine E.R 60 MG TABLET PO SCH (09:40)
[2020-01-16] MEDS: LOSARTAN POTASSIUM 25 MG TABLET PO SCH (09:41)
[2020-01-16] MEDS: FERROUS SO4 325 MG TABLET (FP) PO SCH ×2 (09:41→21:22)
[2020-01-16] MEDS: metoPROLOL SUCCINATE 25 MG TAB.SR.24H (FP) PO SCH (09:41)
[2020-01-16] MEDS: predniSONE 1 MG TABLET (FP) PO SCH (09:41)
[2020-01-16] MEDS: LIDOCAINE 5% TOPICAL PATCH TP SCH (09:41)
[2020-01-16] MEDS: ATORVASTATIN CA 40 MG TABLET (FP) PO SCH (09:41)
[2020-01-16] MEDS: ASPIRIN COATED 81 MG TABLET.EC PO SCH (09:41)
[2020-01-16] MEDS: BUPRENORPHINE/NALOXONE 2 MG/0.5 MG FILM PACKET SL SCH (09:41)
[2020-01-16] MEDS: RIVAROXABAN 2.5 MG TABLET PO SCH ×2 (12:02→21:22)
[2020-01-16] MEDS: RIVAROXABAN 2.5 MG PO SCH (12:03)
[2020-01-16] MEDS: THIAMINE HCL 100 MG TABLET (FP) PO SCH (21:22)
[2020-01-16] MEDS: MELATONIN 5 MG TABLETS PO SCH (21:22)
[2020-01-16] MEDS: LIDOCAINE PATCH REMOVAL MC SCH (21:23)
[2020-01-17] MEDS ORDERED: PT OWN MED DRAWER 7, Y5N ONE (08:59)
[2020-01-17] MEDS: predniSONE 1 MG TABLET (FP) PO SCH (09:51)
[2020-01-17] MEDS: PRENATAL VITAMINS W/ FOLIC ACID TABLET (FP) PO SCH (09:51)
[2020-01-17] MEDS: BUPRENORPHINE/NALOXONE 2 MG/0.5 MG FILM PACKET SL SCH (09:52)
[2020-01-17] MEDS: ATORVASTATIN CA 40 MG TABLET (FP) PO SCH (09:52)
[2020-01-17] MEDS: FERROUS SO4 325 MG TABLET (FP) PO SCH ×2 (09:52→21:15)
[2020-01-17] MEDS: NIFEdipine E.R 60 MG TABLET PO SCH (09:52)
[2020-01-17] MEDS: PREGABALIN 100 MG CAPSULE PO SCH ×2 (09:52→21:16)
[2020-01-17] MEDS: ASPIRIN COATED 81 MG TABLET.EC PO SCH (09:52)
[2020-01-17] MEDS: metoPROLOL SUCCINATE 25 MG TAB.SR.24H (FP) PO SCH (09:52)
[2020-01-17] MEDS: RIVAROXABAN 2.5 MG TABLET PO SCH ×2 (09:53→21:15)
[2020-01-17] MEDS: LIDOCAINE 5% TOPICAL PATCH TP SCH (09:53)
[2020-01-17] MEDS: LOSARTAN POTASSIUM 25 MG TABLET PO SCH (10:25)
[2020-01-17] MEDS: MELATONIN 5 MG TABLETS PO SCH (21:15)
[2020-01-17] MEDS: THIAMINE HCL 100 MG TABLET (FP) PO SCH (21:15)
[2020-01-17] MEDS: ACETAMINOPHEN 325 MG TABLET (FP) PO PRN (21:16)
[2020-01-17] MEDS: LIDOCAINE PATCH REMOVAL MC SCH (21:17)
[2020-01-18] MEDS: ACETAMINOPHEN 325 MG TABLET (FP) PO PRN ×3 (06:13→21:34)
[2020-01-18] MEDS ORDERED: PT OWN MED DRAWER 7, Y5N ONE ×2 (08:38→19:31)
[2020-01-18] MEDS: PRENATAL VITAMINS W/ FOLIC ACID TABLET (FP) PO SCH (10:01)
[2020-01-18] MEDS: FERROUS SO4 325 MG TABLET (FP) PO SCH ×2 (10:02→21:33)
[2020-01-18] MEDS: LIDOCAINE 5% TOPICAL PATCH TP SCH (10:02)
[2020-01-18] MEDS: NIFEdipine E.R 60 MG TABLET PO SCH (10:02)
[2020-01-18] MEDS: ATORVASTATIN CA 40 MG TABLET (FP) PO SCH (10:02)
[2020-01-18] MEDS: predniSONE 1 MG TABLET (FP) PO SCH (10:02)
[2020-01-18] MEDS: BUPRENORPHINE/NALOXONE 2 MG/0.5 MG FILM PACKET SL SCH (10:02)
[2020-01-18] MEDS: ASPIRIN COATED 81 MG TABLET.EC PO SCH (10:02)
[2020-01-18] MEDS: PREGABALIN 100 MG CAPSULE PO SCH ×2 (10:02→21:33)
[2020-01-18] MEDS: LOSARTAN POTASSIUM 25 MG TABLET PO SCH (10:03)
[2020-01-18] MEDS: RIVAROXABAN 2.5 MG TABLET PO SCH ×2 (10:03→21:34)
[2020-01-18] MEDS: metoPROLOL SUCCINATE 25 MG TAB.SR.24H (FP) PO SCH (10:03)
[2020-01-18] MEDS: LIDOCAINE PATCH REMOVAL MC SCH (21:34)
[2020-01-18] MEDS: MELATONIN 5 MG TABLETS PO SCH (21:34)
[2020-01-18] MEDS: THIAMINE HCL 100 MG TABLET (FP) PO SCH (21:34)
[2020-01-19] MEDS: ACETAMINOPHEN 325 MG TABLET (FP) PO PRN ×3 (06:29→21:31)
[2020-01-19] MEDS: ATORVASTATIN CA 40 MG TABLET (FP) PO SCH (09:55)
[2020-01-19] MEDS: predniSONE 1 MG TABLET (FP) PO SCH (09:55)
[2020-01-19] MEDS: LOSARTAN POTASSIUM 25 MG TABLET PO SCH (09:55)
[2020-01-19] MEDS: PRENATAL VITAMINS W/ FOLIC ACID TABLET (FP) PO SCH (09:55)
[2020-01-19] MEDS: FERROUS SO4 325 MG TABLET (FP) PO SCH ×2 (09:55→21:30)
[2020-01-19] MEDS: NIFEdipine E.R 60 MG TABLET PO SCH (09:55)
[2020-01-19] MEDS: PREGABALIN 100 MG CAPSULE PO SCH ×2 (09:55→21:30)
[2020-01-19] MEDS: ASPIRIN COATED 81 MG TABLET.EC PO SCH (09:55)
[2020-01-19] MEDS: LIDOCAINE 5% TOPICAL PATCH TP SCH (09:56)
[2020-01-19] MEDS: RIVAROXABAN 2.5 MG TABLET PO SCH ×2 (09:56→21:30)
[2020-01-19] MEDS: BUPRENORPHINE/NALOXONE 2 MG/0.5 MG FILM PACKET SL SCH (09:56)
[2020-01-19] MEDS ORDERED: PT OWN MED DRAWER 7, Y5N ONE ×2 (09:58→18:59)
[2020-01-19] MEDS: metoPROLOL SUCCINATE 25 MG TAB.SR.24H (FP) PO SCH (09:58)
[2020-01-19] MEDS: MELATONIN 5 MG TABLETS PO SCH (21:30)
[2020-01-19] MEDS: THIAMINE HCL 100 MG TABLET (FP) PO SCH (22:05)
[2020-01-19] MEDS: LIDOCAINE PATCH REMOVAL MC SCH (22:05)
[2020-01-20 06:58] VITALS: BP 155/87; PULSE 81; TEMP 97.5
[2020-01-20] MEDS ORDERED: PT OWN MED DRAWER 7, Y5N ONE (09:42)
[2020-01-20] MEDS: PRENATAL VITAMINS W/ FOLIC ACID TABLET (FP) PO SCH (09:45)
[2020-01-20] MEDS: FERROUS SO4 325 MG TABLET (FP) PO SCH (09:45)
[2020-01-20] MEDS: ASPIRIN COATED 81 MG TABLET.EC PO SCH (09:45)
[2020-01-20] MEDS: NIFEdipine E.R 60 MG TABLET PO SCH (09:45)
[2020-01-20] MEDS: LOSARTAN POTASSIUM 25 MG TABLET PO SCH (09:46)
[2020-01-20] MEDS: predniSONE 1 MG TABLET (FP) PO SCH (09:46)
[2020-01-20] MEDS: RIVAROXABAN 2.5 MG TABLET PO SCH (09:46)
[2020-01-20] MEDS: PREGABALIN 100 MG CAPSULE PO SCH (09:46)
[2020-01-20] MEDS: metoPROLOL SUCCINATE 25 MG TAB.SR.24H (FP) PO SCH (09:46)
[2020-01-20] MEDS: ATORVASTATIN CA 40 MG TABLET (FP) PO SCH (09:49)
[2020-01-20] MEDS: LIDOCAINE 5% TOPICAL PATCH TP SCH (09:49)
[2020-01-20] MEDS ORDERED: BUPRENORPHINE/NALOXONE 2 MG/0.5 MG FILM PACKET SL SCH (10:00)
== END 2020-01-20 10:16 | disposition other institution (70) | DRG 772 ==
LOC: YASAS 15:28 → Y3W 23:29
PROVIDERS: ADMIT Allergy & Immunology; ATTEND Allergy & Immunology
PROC: HZ42ZZZ Group Counseling for Substance Abuse Treatment, Cognitive-Behavioral (ICD-10-PCS; principal; 2019-12-23)
DX: F11.20 Opioid dependence, uncomplicated (principal); I25.10 Atherosclerotic heart disease of native coronary artery without angina pectoris; I10 Essential (primary) hypertension; E78.5 Hyperlipidemia, unspecified; B02.8 Zoster with other complications; B02.29 Other postherpetic nervous system involvement; K43.9 Ventral hernia without obstruction or gangrene; Z86.718 Personal history of other venous thrombosis and embolism; Z79.01 Long term (current) use of anticoagulants; Z79.82 Long term (current) use of aspirin; Z91.013 Allergy to seafood; Z91.030 Bee allergy status; Z59.0 Homelessness
CPT/HCPCS: 36415; 80053; 81003; 85027; 85660; 86780; 93005; 93010; C9803; G0008; J0735; Q2036; U0003

== ENCOUNTER 2020-01-01 09:55 | Emergency (ER) | payer OTHER ==
[2020-01-01 10:12] VITALS: PULSE 98; TEMP 98.3; BMI 28.5
--- OUTSIDE RECORDS SUMMARY | 2020-01-01 10:22 | XMS ---
:1960 Author Organization [facility] Support Name Relationship Address Phone UE Unavailable Unavailable Unavailable REBECCA [place] [address] Re-disclosure Warning The records that you are about to access may contain information from federally- assisted alcohol or drug abuse programs. If such information is present, then the following federally mandated warning applies: This information has been disclosed to you from records protected by federal confidentiality rules (42 CFR part 2). The federal rules prohibit you from making any further disclosure of this information unless further disclosure is expressly permitted by the written consent of the person to whom it pertains or as otherwise permitted by 42 CFR part 2. A general authorization for the release of medical or other information is NOT sufficient for this purpose. The Federal rules restrict any use of the information to criminally investigate or prosecute any alcohol or drug abuse patient.The records that you are about to access may contain highly sensitive health information, the redisclosure of which is protected by Article 27-F of the [facility] Public Health law. If you continue you may haveaccess to information: Regarding HIV / AIDS; Provided by facilities licensed or operated by the [facility] Office of Mental Health; or Provided by the [facility] Office for People With Developmental Disabilities. If such information is present, then the following [facility] mandated warning applies: This information has been disclosed to you from confidential records which are protected by state law. State law prohibits you from making any further disclosure of this information without the specific written consent of the person to whom it pertains, or as otherwise permitted by law. Any unauthorized further disclosure in violation of state law may result in a fine or intermediate sentence or both. A general authorization for the release of medical or other information is NOT sufficient authorization for further disclosure. Insurance Providers Payer name Policy type Policy ID Covered Covered democrat's Policy P poonam / Coverage democrat ID relationship to [facility] Inf ormation type beck [facility] [id number] FIRST Results ID Date Data Source [id number] 12/23/2019 06:55:00 PM EDT [facility] Name Value Range Interpretation Code Description Data Apdmini rce(s) Supporting Document(s ) SARS COV-2 [facility] RT-PCR This lab was ordered by [facility] and reported by [facility]. Procedure
[2020-01-01] MEDS ORDERED: valACYclovir HCL 1000 MG TABLET PO ONE (10:28)
[2020-01-01] MEDS ORDERED: valACYclovir HCL 500 MG TABLET (FP) ONE (10:33)
[2020-01-01] MEDS ORDERED: PREGABALIN 100 MG CAPSULE PO ONE (10:34)
[2020-01-01] MEDS ORDERED: PREGABALIN 100 MG CAPSULE ONE (10:42)
--- NOTE | 2020-01-01 10:42 | PDOC ---
Documentation entered by Kim Cuenca SCRIBE, acting as scribe for Tejas Hamlin MD. Tejas Hamlin MD: This documentation has been prepared by the Bang douglas Xhesika, SCRIBE, under my direction and personally reviewed by me in its entirety. I confirm that the documentation accurately reflects all work, treatment, procedures, and medical decision making performed by me. 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 Pt reports he noticed a rash on his chest and back this morning when he woke up. Pt states he was given a muscle relaxer at [facility] with no improvement of symptoms. The patient denies shortness of breath, headache and dizziness. Denies fever, chills, cough, nausea, vomiting, diarrhea and constipation. Allergies: bee venom protein, fish containing products Past History - Medical History Allergies/Adverse Reactions: Allergies Allergy/AdvReac Type Severity Reaction Status Date / Time bee venom protein (honey bee) Allergy Intermediate Swelling Verified 01/01/20 10:07 Fish Containing Products AdvReac Intermediate Hives Verified 01/01/20 10:07 Home Medications: Ambulatory Orders Aspirin [Ecotrin] 81 mg PO DAILY 12/23/19 Atorvastatin Calcium 40 mg PO DAILY 12/23/19 Buprenorphine/Naloxone [Suboxone 2Mg/0.5MG Sl Film -] 1 combo SL DAILY 12/23/19 Ferrous Sulfate 325 mg PO BID 12/23/19 Losartan Potassium 25 mg PO DAILY 12/23/19 Metoprolol Succinate 25 mg PO DAILY 12/23/19 Naproxen 500 mg PO Q12H 12/23/19 Nifedipine ER [Procardia Xl -] 60 mg PO DAILY 12/23/19 Rivaroxaban [Xarelto] 2.5 mg PO BID 12/23/19 Asthma: No COPD: No Diabetes: No GI Disorders: No Disorders: No Kidney Stones: No Seizures: No - Surgical History Abdominal Surgery: No Appendectomy: No Cardiac Surgery: No Cholecystectomy: No Lung Surgery: No Neurologic Surgery: No Orthopedic Surgery: No - Reproductive History Testicular Surgery: No - Psycho-Social/Smoking History Smoking History: Never smoked Have you smoked in the past 12 months: No Information on smoking cessation initiated: No - Substance Abuse Hx (Audit-C & DAST Scrn) How often the patient has a drink containing alcohol: Never How often the patient has six or more drinks on one occasion: Never Score: In Men: 4 or > Positive; In Women: 3 or > Positive: 0 Screen Result (Pos requires Nsg. Audit-10AR): Negative In the last yr the pt used illegal drug/Rx for NonMed reason: Yes Score: Yes response is considered Positive: 1 Screen Result (Positive result requires Nsg. DAST-10): Positive Review of Systems - Review of Systems Able to Perform ROS?: Yes Comments:: 01/01/20 10:28 CONSTITUTIONAL: No fever, no chills, no fatigue EYES: No visual changes ENT: No ear pain, no sore throat CARDIOVASCULAR: No chest pain, no palpitations RESPIRATORY: No cough, no SOB GI: No abdominal pain, no nausea, no vomiting, no constipation, no diarrhea GENITOURINARY: No dysuria, no frequency, no hematuria MUSKULOSKELETAL: No backpain, no joint pain, no myalgias. +L chest burning and pain. +L mid back burning and pain SKIN: + rash on L chest and L mid back NEURO: No headache *Physical Exam - Vital Signs Last Vital Signs Temp Pulse Resp BP Pulse Ox 98.3 F 98 H 18 162/91 99 01/01/20 10:07 01/01/20 10:07 01/01/20 10:07 01/01/20 10:07 01/01/20 10:07 - Physical Exam 01/01/20 10:44 CONSTITUTIONAL: Well-appearing; well-nourished; in no apparent distress HEAD: Normocephalic; atraumatic EYES: PERRL; EOM intact ENMT: External appears normal; normal oropharynx NECK: Supple; non-tender; no cervical lymphadenopathy CARD: Normal S1, S2; no murmurs, rubs, or gallops RESP: Normal chest excursion with respiration; breath sounds clear and equal bilaterally; no wheezes, rhonchi, or rales ABD: Soft, non-distended; non-tender; no palpable organomegaly, no palpable hernias EXT: Normal ROM in all four extremities; non-tender to palpation; distal pulses intact SKIN: +vesicular rash to L anterior chest and L mid back, consistent with shingles NEURO: No focal neurological deficiencies. Medical Decision Making - Medical Decision Making 01/01/20 10:40 59-year-old patient with history of CAD on aspirin and Xarelto presents with burning superficial cutaneous chest pain radiating to the back since Monday. Physical exam reveals pustular rash in the T5 /T6 dermatomal distribution. That does not cross the midline consistent with acute herpes zoster. Will administer Valtrex and Lyrica given limited options for pain control. Case discussed with Korin PERSAUD MD. Will discharge to [facility]. 01/01/20 10:46 Discharge - Discharge Information Problems reviewed: Yes Clinical Impression/Diagnosis: Shingles Qualifiers: Herpes zoster complications: unspecified herpes zoster complication Qualified Code(s): B02.8 - Zoster with other complications Condition: Stable Disposition: HOME - Follow up/Referral Referrals: Yonathan Vasquez MD [Staff Physician] - - Patient Discharge Instructions Patient Printed Discharge Instructions: Shingles Additional Instructions: Take Valtrex-1000 mg 3 times daily for 7 days. Keep the lesions covered. Take Lyrica 100 mg 3 times a day for pain. Return immediately if the lesions spread. - Post Discharge Activity
[2020-01-01] MEDS ORDERED: valACYclovir HCL 500 MG TABLET (FP) PO ONE (11:00)
[2020-01-01] MEDS ORDERED: NIFEdipine E.R 60 MG TABLET PO ONE (11:52)
[2020-01-01] MEDS ORDERED: LOSARTAN POTASSIUM 25 MG TABLET PO ONE (11:52)
[2020-01-01] MEDS ORDERED: NIFEdipine E.R. 30 MG TABLET ONE (11:55)
[2020-01-01] MEDS ORDERED: LOSARTAN POTASSIUM 50 MG TABLET ONE (11:55)
[2020-01-01 12:05] VITALS: BP 170/98
--- NOTE | 2020-01-06 11:34 | EKG ---
Test Reason : Blood Pressure : / mmHG Vent. Rate : 103 BPM Atrial Rate : 103 BPM P-R Int : 146 ms QRS Dur : 078 ms QT Int : 348 ms P-R-T Axes : 061 048 102 degrees QTc Int : 455 ms SINUS TACHYCARDIA POSSIBLE LEFT ATRIAL ENLARGEMENT NONSPECIFIC T WAVE ABNORMALITY ABNORMAL ECG WHEN COMPARED WITH ECG OF 01-JAN-2020 07:45, T WAVE VARIATION Confirmed by SINDI ALEXANDER MD ([id number]) on 01/06/2020 11:34:27 AM Referred By: Confirmed By:SINDI ALEXANDER MD
== END 2020-01-01 12:05 | disposition home or self-care (01) ==
LOC: JER 09:55
PROC: 3E0234Z Introduction of Serum, Toxoid and Vaccine into Muscle, Percutaneous Approach (ICD-10-PCS; principal; 2020-01-01)
DX: B02.8 Zoster with other complications (principal)
CPT/HCPCS: 93005; 93010; 99284-25